=== PATIENT | male | born 1995 | race Caucasian/White ===

== ENCOUNTER 2020-11-28 20:35 | Emergency (ER) | payer MEDICAID ==
[~2020-11-28] VITALS: Ht 185.4 cm; Wt 109.0 kg
[2020-11-28 20:42] VITALS: BP 125/70
== END 2020-11-28 21:18 | disposition left against medical advice (07) ==
LOC: ER 20:35
DX: R21 Rash and other nonspecific skin eruption (principal); Z53.21 Procedure and treatment not carried out due to patient leaving prior to being seen by health care provider

== ENCOUNTER 2021-04-23 11:55 | Emergency (ER) | payer MEDICAID ==
[~2021-04-23] VITALS: Ht 182.9 cm; Wt 90.0 kg
[2021-04-23] MEDS ORDERED: SODIUM CHLORIDE 0.9% 1,000 ML IV ONE (12:15)
[2021-04-23] MEDS ORDERED: LORAZEPAM 1MG TABLET PO ONE (12:15)
[2021-04-23 13:31] LABS: BASOPHILS % 0.6 % (0.0-2.0); EOSINOPHILS % 1.2 % (0.0-5.0); HEMATOCRIT. 43.1 % (42.0-52.0); HEMOGLOBIN. 15.2 g/dL (14.0-18.0); LYMPHOCYTES % 22.4 % (20.0-50.0); MEAN CORPUSCULAR HEMOGLOBIN 30.3 pg (28.0-32.0); MEAN CORPUSCULAR VOLUME 85.8 fL (80.0-94.0); MEAN PLATELET VOLUME 9.6 fl (7.4-10.4); NEUTROPHILS % 68.8 % (40.0-76.0); PLATELET 240 x1000/uL (130-400); RED BLOOD CELL COUNT 5.02 mill/uL (4.7-6.1); RED CELL DISTRIBUTION WIDTH 13.4 % (11.6-14.6)
[2021-04-23 13:39] LABS: CHLORIDE 101 mEq/L (98-107)
[2021-04-23 13:46] LABS: ETHANOL BLOOD < 10 mg/dL
[2021-04-23 17:35] VITALS: BP 120/72
== END 2021-04-23 17:38 | disposition home or self-care (01) ==
LOC: ER 12:23
DX: G40.909 Epilepsy, unspecified, not intractable, without status epilepticus (principal); R94.31 Abnormal electrocardiogram [ECG] [EKG]; J45.909 Unspecified asthma, uncomplicated; Z98.890 Other specified postprocedural states
CPT/HCPCS: 36415; 71045; 80053; 80165; 80320; 84484; 85025; 93005; 96360; 96361; 99285; J7030; G0480

== ENCOUNTER 2021-06-23 14:06 | Emergency (ER) | payer MEDICAID ==
[~2021-06-23] VITALS: Ht 177.8 cm; Wt 82.0 kg
[2021-06-23] MEDS ORDERED: OFLO5DRO4 LEFT EAR (15:42)
[2021-06-23 15:57] LABS: BASOPHILS % 0.5 % (0.0-2.0); EOSINOPHILS % 0.8 % (0.0-5.0); HEMATOCRIT. 42.3 % (42.0-52.0); HEMOGLOBIN. 13.9 g/dL (14.0-18.0); LYMPHOCYTES % 12.6 % (20.0-50.0); MEAN CORPUSCULAR HEMOGLOBIN 28.8 pg (28.0-32.0); MEAN CORPUSCULAR VOLUME 87.6 fL (80.0-94.0); MEAN PLATELET VOLUME 9.3 fl (7.4-10.4); MONOCYTES % 6.1 % (2.0-8.0); PLATELET 270 x1000/uL (130-400); RED BLOOD CELL COUNT 4.83 mill/uL (4.7-6.1); RED CELL DISTRIBUTION WIDTH 14.8 % (11.6-14.6)
[2021-06-23] MEDS ORDERED: LEVETIRACETAM 500MG PREMIX 100 ML IV ONE (16:00)
[2021-06-23] MEDS ORDERED: SODIUM CHLORIDE 0.9% 1,000 ML IV ONE (16:00)
[2021-06-23 16:02] LABS: CHLORIDE 107 mEq/L (98-107)
[2021-06-23] MEDS ORDERED: LEVETIRACETAM 250MG TABLET PO NR (18:00)
[2021-06-23] MEDS ORDERED: KEPP500 MT (18:59)
[2021-06-23 20:45] VITALS: BP 133/82
== END 2021-06-23 21:26 | disposition home or self-care (01) ==
LOC: ER 14:14
DX: H72.92 Unspecified perforation of tympanic membrane, left ear (principal); R56.9 Unspecified convulsions; F12.10 Cannabis abuse, uncomplicated
CPT/HCPCS: 36415; 70450; 80053; 85025; 93005; 99285; J7030

== ENCOUNTER 2021-08-03 17:01 | Emergency (ER) | payer MEDICAID ==
[~2021-08-03] VITALS: Ht 167.6 cm; Wt 74.0 kg
[~2021-08-03 17:01] MED LIST: KEPP500 MT; OFLO5DRO4 LEFT EAR
[2021-08-03 17:05] VITALS: BP 128/72
[2021-08-03] MEDS ORDERED: zyprexa (17:05)
[2021-08-03] MEDS ORDERED: advair (17:05)
== END 2021-08-03 20:17 | disposition left against medical advice (07) ==
LOC: ER 17:01
DX: Z53.21 Procedure and treatment not carried out due to patient leaving prior to being seen by health care provider (principal)
CPT/HCPCS: 93005

== ENCOUNTER 2021-08-03 22:01 | Emergency (ER) | payer MEDICAID ==
[~2021-08-03] VITALS: Ht 170.2 cm; Wt 78.0 kg
[~2021-08-03 22:01] MED LIST changes: +advair; +zyprexa
[2021-08-03 23:22] LABS: BASOPHILS % 0.3 % (0.0-2.0); EOSINOPHILS % 0.5 % (0.0-5.0); HEMATOCRIT. 44.7 % (42.0-52.0); LYMPHOCYTES % 14.1 % (20.0-50.0); MEAN CORPUSCULAR HEMOGLOBIN 29.8 pg (28.0-32.0); MEAN CORPUSCULAR VOLUME 88.9 fL (80.0-94.0); MONOCYTES % 5.2 % (2.0-8.0); NEUTROPHILS % 79.9 % (40.0-76.0); RED BLOOD CELL COUNT 5.02 mill/uL (4.7-6.1); RED CELL DISTRIBUTION WIDTH 14.8 % (11.6-14.6)
[2021-08-03 23:29] LABS: CHLORIDE 105 mEq/L (98-107)
[2021-08-03 23:33] LABS: ETHANOL BLOOD < 10 mg/dL
[2021-08-04] MEDS ORDERED: LEVETIRACETAM 500MG PREMIX 100 ML IV NR (00:30)
[2021-08-04 00:49] LABS: MEAN PLATELET VOLUME 9.2 fl (7.4-10.4); PLATELET 152 x1000/uL (130-400)
[2021-08-04 02:16] VITALS: BP 137/83
== END 2021-08-04 02:41 | disposition home or self-care (01) ==
LOC: ER 22:01
DX: R56.9 Unspecified convulsions (principal); R51.9 Headache, unspecified; J45.909 Unspecified asthma, uncomplicated; F12.10 Cannabis abuse, uncomplicated
CPT/HCPCS: 36415; 80053; 80320; 85025; 93005; 96365; 96366; 99284; J1953; G0480